=== PATIENT | female | born 2000 | race Two or more races ===

== ENCOUNTER → 2020-04-10 | Outpatient (CLI) | payer OTHER | END | disposition home or self-care (01) | LOC: RX STUDY 13:32 | DX: K59.01 Slow transit constipation (principal) ==

== ENCOUNTER → 2020-04-18 | Outpatient (CLI) | payer OTHER | END | disposition home or self-care (01) | LOC: RX STUDY 11:12 | DX: K59.01 Slow transit constipation (principal) ==